=== PATIENT | male | born 1945 | race Caucasian/White ===

== ENCOUNTER 2017-03-20 15:32 | Emergency (ER) | payer MEDICARE, OTHER | END 2017-03-20 17:41 | disposition home or self-care (01) | LOC: FER 15:32 | DX: S51.812A Laceration without foreign body of left forearm, initial encounter (principal); E78.5 Hyperlipidemia, unspecified; I25.2 Old myocardial infarction; E03.9 Hypothyroidism, unspecified; Z23 Encounter for immunization; Z95.5 Presence of coronary angioplasty implant and graft; Z91.09 Other allergy status, other than to drugs and biological substances; W29.3XXA Contact with powered garden and outdoor hand tools and machinery, initial encounter; Y92.009 Unspecified place in unspecified non-institutional (private) residence as the place of occurrence of the external cause | CPT/HCPCS: 90471; 90715 ==

== ENCOUNTER 2021-06-20 11:26 | Emergency (ER) | payer MEDICARE, OTHER ==
[~2021-06-20 11:26] MED LIST: ACETAMINOPHEN500 M1 PO; ASPIRIN CHEWABL81 MG PO; FLOMAX 0.4 MG0.4 MG PO; LEVOTHYROXINE75 MCG PO; LIPITOR20 MG PO; MOBIC7.5 MG PO; NAPROXEN500 MG PO; VITAMIN B-121000 MC1 PO; VITAMIN D2000 UNIT PO; XARELTO10 MG PO
[2021-06-20 13:04] LABS: BASOPHIL 0.5 % (0-2); EOSINOPHIL 0.3 % (0-7); HCT 45.3 % (42.0-52.0); HGB 14.7 g/dl (13.2-18.0); LYMPHOCYTE 12.6 % (15-48); MCH 28.7 pg (25.0-31.0); MCHC 32.5 g/dL (32.0-36.0); MCV 88.5 fL (78.0-100.0); MONOCYTE 8.4 % (0-12); MPV 9.4 fL (6.0-9.5); NEUTROPHIL 77.7 % (41-80); NRBC 0; PLT 298 K/uL (150-400); RBC 5.12 M/uL (4.70-6.00); WBC 7.5 K/uL (4.0-10.5)
[2021-06-20 13:26] LABS: CREATININE 1.47 mg/dL (0.67-1.17); POTASSIUM 4.4 mmol/L (3.5-5.1)
[2021-06-20 13:42] LABS: BILIRUBIN NEGATIVE (NEGATIVE); BLOOD NEGATIVE Ery/uL (NEGATIVE); CLARITY CLEAR (CLEAR); COLOR YELLOW (YELLOW); GLUCOSE (U) NORMAL (NORMAL); LEUKOCYTES NEGATIVE Leu/uL (NEGATIVE); NITRITE NEGATIVE (NEGATIVE); PROTEIN NEGATIVE (NEGATIVE); UROBILINOGEN 0.2 mg/dL (0.2-1.0)
[2021-06-20] MEDS ORDERED: ANTIVERT25 MG PO (14:18)
== END 2021-06-20 14:55 | disposition home or self-care (01) ==
LOC: FER 11:26
PROVIDERS: Nurse Practitioner Family
DX: H81.10 Benign paroxysmal vertigo, unspecified ear (principal); E03.9 Hypothyroidism, unspecified; I48.91 Unspecified atrial fibrillation
CPT/HCPCS: 36415; 80048; 81003; 84439; 84443; 85025; 93005